=== PATIENT | female | born 1955 | race Two or more races ===

== ENCOUNTER 2018-06-26 09:01 | Day surgery (SDC) | payer OTHER ==
[2018-06-26] MEDS ORDERED: DIAZEPAM 5 MG TAB PO ONE (09:04)
[2018-06-26] MEDS ORDERED: ASPIRIN EC 325 MG TAB PO ONE ×2 (09:04→09:23)
[2018-06-26] MEDS ORDERED: diphenhydrAMINE 25 MG CAP PO ONE ×2 (09:04→09:22)
[2018-06-26] MEDS ORDERED: FAMOTIDINE 20 MG TAB PO ONE (09:04)
[2018-06-26] MEDS ORDERED: NS 1,000 ML IV ONE (09:04)
[2018-06-26] MEDS ORDERED: DIAZEPAM 5 MG TAB ONE (09:23)
[2018-06-26] MEDS ORDERED: FAMOTIDINE 20 MG TAB ONE (09:23)
[2018-06-26 09:45] LABS: PLATELET COUNT 226 10^3/uL (150-400)
[2018-06-26] MEDS ORDERED: fentaNYL 100 MCG/2 ML INJ ONE (09:50)
[2018-06-26] MEDS ORDERED: LIDOCAINE 1% 300 MG/30 ML SDV ONE (09:50)
[2018-06-26] MEDS ORDERED: MIDAZOLAM 2 MG/2 ML VIAL ONE (09:50)
[2018-06-26] MEDS ORDERED: VERAPAMIL 5 MG/2 ML VIAL ONE (09:51)
[2018-06-26] MEDS ORDERED: IOPAMIDOL (ISOVUE-370) 150 ML BTL IV ONE (09:51)
[2018-06-26] MEDS ORDERED: HEPARIN 10,000 UNIT/10 ML MDV (1,000 UNIT/ML) ONE (09:51)
[2018-06-26 09:52] LABS: INR 0.96 (0.83-1.16)
--- NOTE | 2018-06-26 10:00 | CPEKG ---
Test Reason : OPEN Blood Pressure : / mmHG Vent. Rate : 061 BPM Atrial Rate : 060 BPM P-R Int : 224 ms QRS Dur : 091 ms QT Int : 452 ms P-R-T Axes : 052 047 058 degrees QTc Int : 456 ms Sinus rhythm First degree AV block Borderline LVH Confirmed by Yash Guardado ([id number]) on 06/26/2018 9:59:44 AM Referred By: Confirmed By:Yash Guardado
--- NOTE | 2018-06-26 10:20 | PDHPUP ---
History & Physical Update H&P update statement: This history and physical update is based on an assessment of the patient which was completed after admission or registration (within 24 hours), but prior to the surgery/procedure. H&P update: H&P reviewed & patient examined, no change in patient's condition since H&P completed (Luis test right wrist normal at less than 5 sec.)
--- NOTE | 2018-06-26 10:21 | PDPROPOC ---
Sedation Plan of Care Sedation Plan of Care: vital signs stable, mental status noted, patient educated of risks, benefits, alternatives, patient can tolerate sedation ASA Classification: ASA 1 Planned drugs: fentanyl, midazolam Mallampati Score: Class 2 Mallampati Reference Image: Patient passed 3-3-2 rule?: Yes
[2018-06-26] MEDS ORDERED: HYDROCODONE/APAP 5/325 TAB PO PRN (11:12)
[2018-06-26] MEDS ORDERED: ATROPINE SULFATE 1 MG/10 ML SYR IVP PRN (11:12)
[2018-06-26] MEDS ORDERED: ONDANSETRON 4 MG/2 ML VIAL IVP PRN (11:12)
--- NOTE | 2018-06-26 11:18 | PDDXCAT ---
Diagnostic Cath Note - . 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 LAD: Large and angiographically normal. LCX: Large and angiographically normal. RCA: Large and angiographically normal. EDP: 20 mmHg LVEF: 50% Wall motion: Mild global hypokinesis. Complications: None Closure method: TR Band Assessment: 1) Angiographically normal coronary arteries. 2) Borderline LV systolic function.
== END 2018-06-26 13:54 | disposition home or self-care (01) ==
LOC: FCATH 09:01
PROVIDERS: ATTEND Internal Medicine Interventional Cardiology
DX: Z01.810 Encounter for preprocedural cardiovascular examination (principal); Q23.1 Congenital insufficiency of aortic valve; I71.2 Thoracic aortic aneurysm, without rupture; I47.1 Supraventricular tachycardia; I34.0 Nonrheumatic mitral (valve) insufficiency; I07.1 Rheumatic tricuspid insufficiency; I10 Essential (primary) hypertension; N28.1 Cyst of kidney, acquired; I44.0 Atrioventricular block, first degree; Z82.49 Family history of ischemic heart disease and other diseases of the circulatory system
CPT/HCPCS: 71250; 93005; 93458; C1769; J1644; J2250; J3010; Q9967

== ENCOUNTER 2018-07-28 07:15 | Inpatient (IN) | payer OTHER ==
[~2018-07-28 07:15] MED LIST: ADENOSINE 6 MG/2 ML VIAL ONE; ALBUMIN 5% 250 ML BOTTLE IV ONE; AMINOCAPROIC ACID 5 GM/20 ML VIAL ONE; AMIODARONE HCL 150 MG/3 ML VIAL ONE; CALCIUM CHLORIDE 1 GM/10 ML INJ ONE; CARDIOPLEGIC SOLUTION 1,052.8 ML PF ONE; CITRATE DEXTROSE SOLN 500 ML BAG ONE; DOPamine/DEXTROSE 400 MG/250 ML BAG IV ONE; HEPARIN 10,000 UNIT/10 ML MDV (1,000 UNIT/ML) ONE; INSULIN REGULAR HUMAN 100 UNIT in NS 100 ML IV ONE; LIDOCAINE 2% 100 MG/5 ML SYR ONE; MAGNESIUM SULFATE 1 GM/2 ML VIAL ONE; MILRINONE/DEXTROSE/100 ML BAG IV ONE; NA BICARBONATE 50 MEQ/50 ML VIAL ONE; NITROGLYCERIN/D5W 50 MG/250 ML BOTTLE IV ONE; PROTAMINE SULFATE 50 MG/5 ML VIAL IVP ONE; SODIUM BICARBONATE 50 MEQ/50 ML SYR ONE; ceFAZolin 1 GM VIAL ONE; methylPREDNISolone SOD SUCC 1 GM/8 ML VIAL ONE; niCARdipine/NACL/200 ML BAG IV ONE
--- NOTE | 2018-07-28 08:02 | PDGENHP ---
History and Physical - Chief Complaint admit for elective cardiac surgery - History of Present Illness This is a pleasant 63[address] Howard who presents for surgical evaluation of her known BAV with AI, MR, TR, and dilated ascending aorta. She also has a history of paroxymal PAF and HTN. She has had SVT since her 30's and at that time that is when it was diagnosed. She is mostly asymptomatic without cardiac symptoms except for short bursts of palpitations that are usually resolved with bearing down. Her palpitations are worse at night and less during the day. No chest pain, SOB, fatigue. No stroke DM or blood dz. She has a family history of CAD but not any valve or aortic dz. Her last dental exam was 8 months ago. She does hav a history of a dental infection/root canal that has resolved. LHC negative for CAD. CTA chest with 4.4 cm TAA. She denies any change in her health since being seen 2 weeks ago in clinic. History Information - Allergies/Home Medication List Allergies/Adverse Reactions: No Known Allergies Allergy (Verified 07/24/18 11:55) Home Medications: Atenolol [Tenormin 50 mg (*)] 50 mg PO DAILY 06/19/18 [Last Taken Unknown] Diltiazem HCl [Diltiazem 24Hr ER] 180 mg PO DAILY 06/19/18 [Last Taken Unknown] Lisinopril/Hctz 20/12.5MG [Zestoretic/Prinzide 20/12.5MG (*)] 1 ea PO BID [Last Taken Unknown] Multivitamins [Multivitamin (*)] 1 each PO DAILY 07/14/18 [Last Taken Unknown] [place]-3 Fatty Acids [Fish Oil 1000 mg (*)] 1,000 mg PO DAILY 07/14/18 [Last Taken Unknown] I have personally reviewed and updated: family history, medical history, social history, surgical history - Past Medical History no pertinent PMH - Surgical History Reports: no pertinent surgical hx Additional surgical history: No cardiac/pulmonary surgery. - Social History Smoking Status: Never smoked Review of Systems Review of Systems: ROS: 2-9 pt reviewed & negative except for what was stated in HPI & below Physical Exam Physical Exam: Constitutional: no apparent distress, appears nourished Eyes: icteric sclera Ears, Nose, Mouth, Throat: moist mucous membranes, hearing normal, ears appear normal, no oral mucosal ulcers Cardiovascular: regular rate and rhythym, diastolic murmur Respiratory: no respiratory distress, no rales or rhonchi Gastrointestinal: soft, non-tender abdomen Skin: warm, normal color Neurologic: AAOx3 Psychiatric: interacting appropriately, anxious Lab Data & Imaging Review Patient ABO/Rh O POSITIVE 07/26/18 11:34 Antibody Screen NEGATIVE 07/26/18 11:34 WBC 9.3 H/H 14.4/41.4 Plt 226 142 109 16 Glu 120 3.9 22 0.7 Imaging Review: [facility] - no CAD Echo EF 62% Moderate MR, BAV with severe AR. Moderate TR. Dilated ascending aorta Interpretation: ascending aorta aneurysm 4.4 cm & incidental right hepatic cyst 2 x 2.7 cm EKG additional interpertation: NSR with 1st degree AVB; BPM 61: QTc 456 Assessment & Plan Assessment: Bicuspid aortic valve with severe insufficiency Ascending aortic aneurysm @ 4.4 cm Tricuspid valve regurgitation, moderate Mitral imelda regurgitation, moderate Paroxysmal supraventricular tachycardia HTN EF 62% Plan: AVR(tissue), ascending aorta resection & grafting, TVR/R(tissue), MVR/R(tissue) , ZACK with Dr. Head
[2018-07-28] MEDS ORDERED: LIDOCAINE 1% 2 ML INJ ONE (08:31)
[2018-07-28] MEDS ORDERED: CITRATE DEXTROSE SOLN 500 ML BAG MISC ONE (08:46)
[2018-07-28] MEDS ORDERED: AMINOCAPROIC ACID 5 GM/20 ML VIAL IV ONE (08:46)
[2018-07-28] MEDS ORDERED: MUPIROCIN 2% 22 GM OINT NS ONE (08:46)
[2018-07-28] MEDS ORDERED: LIDOCAINE 1% 2 ML INJ ID PRN (08:46)
[2018-07-28] MEDS ORDERED: ceFAZolin 2 GM/DEXTROSE 100 ML IV ONE (08:46)
[2018-07-28] MEDS ORDERED: LR 1,000 ML IV ONE (08:47)
[2018-07-28] MEDS ORDERED: DOBUTamine/DEXTROSE 250 ML IV ONE (09:00)
[2018-07-28] MEDS ORDERED: MILRINONE/DEXTROSE 100 ML IV ONE (09:00)
[2018-07-28] MEDS ORDERED: MIDAZOLAM 2 MG/2 ML VIAL IVP ONE (09:33)
--- NOTE | 2018-07-28 09:33 | PDANEPAE ---
ANE History of Present Illness here for AVR/mvr/tvr/asc aortic ANE Past Medical History - Cardiovascular History Hx Hypertension: Yes Hx Arrhythmias: Yes Hx Chest Pain: No Hx Coronary Artery / Peripheral Vascular Disease: No Hx CHF / Valvular Disease: Yes Hx Palpitations: No Cardiovascular History Comment: htn. hx of svt. murmur. mitral regurg. tricuspid regurg. AAA. bicuspid aortic valve. followed by [facility] - Pulmonary History Hx COPD: No Hx Asthma/Reactive Airway Disease: No Hx Recent Upper Respiratory Infection: No Hx Oxygen in Use at Home: No Hx Sleep Apnea: No Sleep Apnea Screening Result - Last Documented: Positive Pulmonary History Comment: shelley triggers - Neurologic History Hx Cerebrovascular Accident: No Hx Seizures: No Hx Dementia: No - Endocrine History Hx Diabetes: No - Renal History Hx Renal Disorders: No - Liver History Hx Hepatic Disorders: No - Neurological & Psychiatric Hx Hx Neurological and Psychiatric Disorders: No - Cancer History Hx Cancer: No - Congenital Disorder History Hx Congenital Disorders: No - GI History Hx Gastrointestinal Disorders: No - Other Health History Other Health History: wears glasses - Chronic Pain History Chronic Pain: No - Surgical History Prior Surgeries: left heart cath with Lee 06.26.18. benign cyst removed from breast at 19 yo. hysterectomy 1999. appy - emergent 2014. tonsillectomy as teenager ANE Review of Systems Review of systems is: negative Review of Systems: - Exercise capacity Exercise capacity: >=4 METS METS (RN): 3 METS ANE Patient History - Allergies Allergies/Adverse Reactions: No Known Allergies Allergy (Verified 07/24/18 11:55) - Home Medications Home medications: home medication list seen and reviewed Home Medications: Atenolol [Tenormin 50 mg (*)] 50 mg PO DAILY 06/19/18 [Last Taken 07/27/18] Diltiazem HCl [Diltiazem 24Hr ER] 180 mg PO DAILY 06/19/18 [Last Taken 07/27/18] Lisinopril/Hctz 20/12.5MG [Zestoretic/Prinzide 20/12.5MG (*)] 1 ea PO BID [Last Taken 07/27/18] Multivitamins [Multivitamin (*)] 1 each PO DAILY 07/14/18 [Last Taken 07/24/18] [place]-3 Fatty Acids [Fish Oil 1000 mg (*)] 1,000 mg PO DAILY 07/14/18 [Last Taken 07/24/18] - NPO status NPO Status: no food or drink >8 hours NPO Since - Liquids (Date): 07/27/18 NPO Since - Liquids (Time): 23:33 NPO Since - Solids (Date): 07/27/18 NPO Since - Solids (Time): 22:00 - Smoking Hx Smoking Status: Never smoked - Family Anes Hx Family Hx Anesthesia Complications: none ANE Labs/Vital Signs - Vital Signs Vital Signs: reviewed preoperatively; see RN documention for details Blood Pressure: 165/73 Heart Rate: 66 Respiratory Rate: 18 O2 Sat (%): 95 Height: 165.1 cm Weight: 104.5 kg ANE Physical Exam - Airway Neck exam: FROM Mallampati Score: Class 1 - Pulmonary Pulmonary: no respiratory distress - Cardiovascular Cardiovascular: regular rate and rhythym - ASA Status ASA Status: III ANE Anesthesia Plan Anesthesia Plan: general endotracheal anesthesia Lines/Monitors: arterial line, central line, RHONDA
[2018-07-28] MEDS ORDERED: fentaNYL 250 MCG/5 ML INJ ONE ×2 (09:43→10:58)
[2018-07-28] MEDS ORDERED: PROPOFOL/EMULSION 500 MG/50 ML BOTTLE IV ONE (09:48)
[2018-07-28] MEDS ORDERED: MANNITOL 25% 12.5 GM/50 ML VIAL IVP ONE (10:12)
[2018-07-28] MEDS ORDERED: PHENYLEPHRINE HCL 50 MG in NS 250 ML IV ONE (10:12)
[2018-07-28] MEDS ORDERED: NOREPINEPHRINE BITARTRATE 16 MG in NS 250 ML IV ONE (10:12)
[2018-07-28] MEDS ORDERED: PHENYLEPHRINE HCL 100 MCG/ML SYR ONE (11:01)
[2018-07-28] MEDS ORDERED: ePHEDrine SULFATE 25 MG/5 ML SYR ONE (11:01)
[2018-07-28] MEDS ORDERED: HYDROmorphONE/DILAUDID 2 MG/ML INJ ONE (13:21)
[2018-07-28] MEDS ORDERED: DEXMEDETOMIDINE HCL 400 MCG in NS 100 ML IV SCH (13:30)
[2018-07-28] MEDS ORDERED: SUGAMMADEX SODIUM 200 MG/2 ML VIAL IVP ONE (14:26)
--- NOTE | 2018-07-28 14:32 | POSTOPPROG ---
Post Op Note Date of Operation: 07/28/18 Surgeon: Myke Head Assistant: Dayday Griffiths PAC Anesthesiologist: Zach Byrnes MD Anesthesia: GET(General Endotracheal) Pre-op Diagnosis: BAV/AI, MR, TR, ascending aorta aneurysm Post-op Diagnosis: same Procedure: AVR, MVRepair, TVRepair, primary repair of ascending aorta Inf/Abcess present in the surg proc area at time of surgery?: No Depth: Organ Space EBL: 100-500 Drains: Other (2 mediastinal chest tubes y'd; A & V wires) Specimen(s): AV, ascending aorta
[2018-07-28] MEDS ORDERED: CEPACOL LOZENGE PO PRN (14:37)
[2018-07-28] MEDS ORDERED: BISACODYL 10 MG SUPP PR PRN (14:37)
[2018-07-28] MEDS ORDERED: ACETAMINOPHEN 650 MG SUPP PR PRN (14:37)
[2018-07-28] MEDS ORDERED: POLYETHYLENE GLYCOL 3350 17 GM PKT PO PRN (14:37)
[2018-07-28] MEDS ORDERED: PANTOPRAZOLE SODIUM 40 MG VIAL IVP ONE (14:37)
[2018-07-28] MEDS ORDERED: MAGNESIUM HYDROXIDE 30 ML UDCUP PO PRN (14:37)
[2018-07-28] MEDS ORDERED: LACTULOSE 20 GM/30 ML UDCUP PO PRN (14:37)
[2018-07-28] MEDS ORDERED: SODIUM CL NASAL 45 ML BTL EACHNARE PRN (14:37)
[2018-07-28] MEDS ORDERED: MEPERIDINE 25 MG/0.5 ML AMP IVP PRN (14:37)
[2018-07-28] MEDS ORDERED: D50W 25 GM/50 ML SYR IVP PRN (14:37)
[2018-07-28] MEDS ORDERED: ACETAMINOPHEN 325 MG TAB PO PRN (14:37)
[2018-07-28] MEDS ORDERED: ONDANSETRON DISINTEGRATING 4 MG TAB PO PRN (14:37)
[2018-07-28] MEDS ORDERED: NS 1,000 ML IV SCH (14:45)
[2018-07-28] MEDS ORDERED: niCARdipine/NACL 200 ML IV SCH (15:00)
[2018-07-28] MEDS ORDERED: INSULIN REGULAR HUMAN 100 UNIT in NS 100 ML IV SCH (15:00)
--- NOTE | 2018-07-28 15:21 | POSTANESTH ---
Post Anesthetic Evaluation Cardiovascular Status: Normal, Stable Respiratory Status: Requires Airway Assist Level of Consciousness/Mental Status: Moderately Sleepy Pain Control: Adequate, Prn Tx Ordered Nausea/Vomiting Control: Adequate, Prn Tx Ordered Complications Possibly Related to Anesthesia: None Noted
[2018-07-28] MEDS: POTASSIUM Cl (KCl) 50 ML IV PRN ×3 (15:44→19:39)
--- NOTE | 2018-07-28 16:11 | PDMN ---
Medical Necessity Medical necessity: [facility] [place]: S290 cardiac valve replacement/ repair-5 days: OP: AVR, MVRepair, TVRepair, primary repair of ascending aorta --AUTH# [id number] APPROVED FOR CPT 64632, 31760, [id number], [id number] DONE INPT LOS 5 DAYS
--- NOTE | 2018-07-28 16:19 | GCON ---
CRITICAL CARE CONSULTATION DATE OF CONSULTATION: 07/28/2018 HISTORY OF PRESENT ILLNESS: This patient is a 63-year-old female with a known bicuspid aortic valve, as well as progressive aortic regurgitation and stenosis, who has been followed by Dr. Howard who subsequently made a referral for valve replacement, which was performed today by Dr. Head. She und erwent an aortic valve replacement, mitral valve repair, tricuspid valve annuloplasty, left atrial ap pendage ligation, and ascending aorta aneurysm repair. According to the physician's animal care assistant, the p rocedure itself was uncomplicated. Pump time was minimal and there were no hemodynamic compromises. She arrived in the intensive care unit, intubated with no pressors. Chest tubes were in place and s he appeared to be both hemodynamically stable, as well as from a respiratory perspective with an FiO2 of 70% and a saturation of 100. She has no pre-existing coronary artery disease and no previous bela g disease, although some intake questionnaire suggested she has snoring, but no clear indication of o bstructive sleep apnea. REVIEW OF SYSTEMS: Otherwise negative. PAST MEDICAL HISTORY: Includes 1. Bicuspid aortic valve. 2. Aortic stenosis. 3. Aortic regurgitation. 4. Thoracic aortic aneurysm measuring 4.4 cm. 5. Hypertension. 6. Paroxysmal SVT. 7. Mitral regurgitation. PAST SURGICAL HISTORY: Includes 1. Lumpectomy. 2. Hysterectomy. 3. Tonsillectomy. 4. Appendectomy. CURRENT MEDICATIONS: Include Tylenol, Egan, aspirin, Ancef, Precedex, fentanyl, insulin, Toradol, D emerol p.r.n., Reglan, morphine, nicardipine p.r.n., Zofran, Protonix, Senokot, normal saline. EXAM: VITAL SIGNS: On arrival, she was normotensive, heart rate of 88. Oxygen saturation 100% on S IMV and 70% FiO2, with 5 of PEEP. GENERAL: She was still sedated but in no distress and was obese. HEENT: Pupils were equally round and reactive to light. Endotracheal tube was in place, appeared t o be in good position. NECK: Supple, without adenopathy. No subcutaneous air or jugular vein diste ntion. LUNGS: Breath sounds appear to be clear to auscultation bilaterally without wheezes, rubs, o r rales. HEART: Regular rate and rhythm was not pacer dependent. CHEST: Incision looked clean and dry without evidence of bleeding. Chest tube sites looked normal. ABDOMEN: Soft, nontender, nondi stended with hypoactive bowel tones. EXTREMITIES: No clubbing, cyanosis, or edema. NEUROLOGIC: Gr ossly nonfocal. OBJECTIVE DATA: Includes a hematocrit of 37 drawn at 1512 today. Previous basic metabolic panel was normal. Blood gas shows a pH 7.33, pCO2 43, PO2 103, bicarb 23, sat 98%. ASSESSMENT AND PLAN: 1. Acute respiratory failure with hypoxemia, status post cardiac surgery. She appears to be doing q uite well from this perspective. We will advance her as tolerated and I expect she will wean today w ithout difficulty. Will have to watch for obstructive sleep apnea, given her history of snoring and body habitus, and once she is able to give us a history, we can clarify that further. 2. Status post cardiac surgery as described above. This appears to be quite stable at this time wit hout obvious bleeding and hemodynamic stability. Further management of course, would be via Dr. Yary hannon. 3. Hypertension. We are holding her medications at this time, until her blood pressure stabilizes. A total of 35 minutes critical care time was required for this patient. /[id number]/MODL
[2018-07-28] MEDS: ALBUMIN 5% 250 ML IV PRN ×2 (16:20→17:26)
[2018-07-28] MEDS: KETOROLAC 15 MG/1 ML SDV IVP PRN (18:28)
[2018-07-28] MEDS: ONDANSETRON 4 MG/2 ML VIAL IVP PRN (18:54)
[2018-07-28] MEDS: fentaNYL 100 MCG/2 ML INJ IVP PRN (19:38)
[2018-07-28] MEDS: METOCLOPRAMIDE 10 MG/2 ML VIAL IVP PRN (21:27)
[2018-07-28] MEDS: ceFAZolin 2 GM/DEXTROSE 100 ML IV SCH (21:28)
[2018-07-28] MEDS: MUPIROCIN 2% 22 GM OINT NS SCH (23:01)
[2018-07-29] MEDS: KETOROLAC 15 MG/1 ML SDV IVP PRN ×4 (00:08→20:07)
[2018-07-29] MEDS: fentaNYL 100 MCG/2 ML INJ IVP PRN (02:13)
[2018-07-29] MEDS: HYDROCODONE/APAP 5/325 TAB PO PRN ×6 (04:07→22:01)
[2018-07-29] MEDS: METOCLOPRAMIDE 10 MG/2 ML VIAL IVP PRN (04:08)
[2018-07-29] MEDS: ONDANSETRON 4 MG/2 ML VIAL IVP PRN (04:08)
[2018-07-29] MEDS: ceFAZolin 2 GM/DEXTROSE 100 ML IV SCH ×3 (05:09→22:01)
[2018-07-29 05:28] LABS: PLATELET COUNT 99 10^3/uL (150-400)
--- NOTE | 2018-07-29 07:18 | SOAPPROG ---
JONAS Progress Note Assessment/Plan: POD #1 s/p AVR size 23 Inspiris, resection and primary repair of ascending aortic aneurysm, MVRepair size 28 physio annuloplasty ring and anterior leaflet cleft repair, TVRepair size 28 Sommer classic annuloplasty ring, external exclusion of ZACK BAV c severe AI and TAA at 4.5 cm -Pre-op EF 62% with no CAD/RWMA on LHC; mildly dilated LV with DD; asymptomatic -Interposition graft deferred as ascending aorta was amenable to primary repair -Plan for coumadin x 8 weeks when appropriate, daily INR -Continue ASA Moderate MR s/p MVRepair -Anterior cleft seen in the OR and repaired primarily Moderate TR s/p TVRepair Paroxysmal SVT -Has infrequent episodes since 30s controlled with diltiazem for maintenance. Restart when appropriate. Acute blood loss anemia with thrombocytopenia -No transfusions required, monitor with daily labs -Hct dropped from 36(arrival ICU) to 28.7. CT o/p 380cc/12hr Acute pulmonary insufficiency -Extubated POD#0 w/o difficulty -No history of pulmonary disease HTN -Takes home ACEI/HCTZ, restart when appropriate Atrial fibrillation ppx -Starting home atenolol -No episodes or other ectopy Plan: Dc swan, arterial line, mobley Wrap & cap AV wires CBC, BMP, daily INRs CXR 1/ Chest tubes to water seal Start atenolol for pSVT/afib ppx at reduced dose (25 mg PO daily) Anticipate starting coumadin tomorrow Recheck H/H at 1400 today Possible transfer to PCU later today. Will d/w Dr. Head. Subjective: Cardene required briefly overnight. MAPS 67-91. Mild pain. Objective: Vital Signs Temp Pulse Resp BP Pulse Ox 36.9 C 73 10 L 102/56 L 97 07/29/18 06:00 07/29/18 07:00 07/29/18 07:00 07/29/18 07:00 07/29/18 07:00 Laboratory Results 07/29/18 05:10 07/29/18 05:10 07/28/18 07/29/18 07/30/18 05:59 05:59 05:59 Intake Total 2165 Output Total 1315 Balance 850 General: NAD, OOB HEENT: CVL IJ, MMM Respiratory: nasal cannula oxygen at 1 L, no wheezes, crackles Cardiac: NSR, no m/r/g, trace edema GI: soft, nt, nd : mobley Incisions: sternum w/ occlusive dressing Chest tubes: 380cc red/12 hr DVT prophylaxis: SCDs Arterial Line: out today [place]: out today [place]: out today CVC: yes, need for ongoing management, labs Chest Tubes: y - both mediastinal Pacing Wires: a/v - wrap and cap ICD10 Worksheet Patient Problems: Problems Problem Status Onset Acute blood loss anemia Acute Paroxysmal supraventricular tachycardia Acute S/P AVR (aortic valve replacement) Acute S/P TVR (tricuspid valve repair) Acute S/P ascending aortic aneurysm repair Acute S/P mitral valve repair Acute
[2018-07-29] MEDS: POTASSIUM Cl (KCl) 50 ML IV PRN (08:26)
[2018-07-29] MEDS ORDERED: ATENOLOL 25 MG TAB PO SCH (09:00)
[2018-07-29] MEDS: MUPIROCIN 2% 22 GM OINT NS SCH ×2 (09:09→20:08)
--- NOTE | 2018-07-29 11:00 | CPEKG ---
Test Reason : OPEN Blood Pressure : / mmHG Vent. Rate : 085 BPM Atrial Rate : 085 BPM P-R Int : 136 ms QRS Dur : 086 ms QT Int : 436 ms P-R-T Axes : 077 057 050 degrees QTc Int : 519 ms Sinus rhythm Prolonged QT interval Confirmed by Sundeep Delgado ([id number]) on 07/29/2018 11:00:40 AM Referred By: Confirmed By:Sundeep Delgado
--- NOTE | 2018-07-29 11:41 | ASMTCASEMG ---
Living Arrangements What is your living Answers: With Spouse arrangement? Who do you live with? Type Of Residence What kind of residence do Answers: House you live in? Discharge Plan Comments Coordination Status Comments Notes: Patient is a 63yo female who presents for surgical evaluation of her known BAV with AI, MR, TR and dilated ascending aorta. Patient will have surgery with Dr. Head - AVR, ascending aorta resection and grafting, TVR/R, MVR and ZACK. 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 D/C plan TBD. CM will follow. Date Signed: 07/29/2018 11:40 AM Electronically Signed By:Marija Pina LCSW
--- NOTE | 2018-07-29 13:49 | PDINTPN ---
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 Her procedure was uneventful and she extubated the same day in the ICU following standard protocol. Once awake, she complained of paresthesia involving most of her RUE without weakness. * Acute respiratory failure with hypoxemia- extubated easily and remains on minimal o2. Comntinue with pulmonary toilet. * Paresthesia- probably related tpo positioning on the OR, but rapidly improving without intervention, now involving only the distal ulnar disdtribution. Shine Worker strength is normal. Continue observation for resolution. * LALO- she has snoring, frequent wakening, obesity and daytime somnolence. Once she has recovered from her surgery she will need anoutpatient sleep study. I gave her my card to schedule. * WBC- slight bump today- obsevere * OK for PCU from my perspective. Subjective: feels well except complains of RUE paresthesia Objective: Vital Signs Temp Pulse Resp BP Pulse Ox 37.1 C 79 20 119/61 90 L 07/29/18 12:00 07/29/18 12:00 07/29/18 12:00 07/29/18 12:00 07/29/18 12:00 Laboratory Results 07/29/18 05:10 07/29/18 05:10 07/28/18 07/29/18 07/30/18 05:59 05:59 05:59 Intake Total 2165 Output Total 1315 110 Balance 850 -110 Physical Exam - Physical Exam General Appearance: alert, no apparent distress, obese EENT: PERRL/EOMI, No scleral icterus (R), No scleral icterus (L) Neck: non-tender, supple Respiratory: lungs clear, normal breath sounds, No respiratory distress, No accessory muscle use Cardiac/Chest: regular rate, rhythm, No edema, No JVD Abdomen: non-tender, soft, No distended Skin: normal color, warm/dry, No cyanosis Lymphatic: no adenopathy Extremities: No pedal edema Neuro/Psych: alert, normal mood/affect, oriented x 3, other (paresthesia in RUE ulnar nerve distribution) ICD10 Worksheet Patient Problems: Problems Problem Status Onset Acute blood loss anemia Acute Paroxysmal supraventricular tachycardia Acute S/P AVR (aortic valve replacement) Acute S/P TVR (tricuspid valve repair) Acute S/P ascending aortic aneurysm repair Acute S/P mitral valve repair Acute
[2018-07-29] MEDS ORDERED: ASPIRIN 81 MG CHEWABLE TAB TUBE PRN (14:37)
--- NOTE | 2018-07-29 15:47 | GOP ---
DATE OF OPERATION: 07/28/2018 SURGEON: Myke Head MD DISTRIBUTION ANALYST: Dayday Griffiths P.A.-c. PREOPERATIVE DIAGNOSIS: 1. Severe aortic insufficiency. 2. Moderate mitral regurgitation. 3. Moderately severe tricuspid regurgitation. 4. Ascending aortic aneurysm. POSTOPERATIVE DIAGNOSIS: 1. Severe aortic insufficiency. 2. Moderate mitral regurgitation. 3. Moderately severe tricuspid regurgitation. 4. Ascending aortic aneurysm. PROCEDURE PERFORMED: 1. Aortic valve replacement using a 23 mm Malcolm Inspiris bioprosthetic valve. 2. Resection and primary repair of ascending aortic aneurysm. 3. Mitral valve repair with cleft closure in the A3 segment of the anterior leaflet and ring annulop lasty using a 28 mm Physio ring. 4. Tricuspid valve repair using a 28 mm annuloplasty ring. 5. Left atrial appendage occlusion. FINDINGS: INDICATIONS: The patient is a 63-year-old woman who is with a primary lesion of aortic insufficiency and slightly dilated left ventricle, who was found to have multivalvular heart disease and an ascend ing aortic aneurysm. She was recommended to undergo surgical repair. DESCRIPTION OF PROCEDURE: Patient was taken to the operating room, placed on the operating table in the supine position. After the induction of general anesthesia and single-lumen endotracheal tube in tubation, patient was prepped and draped sterilely. A standard median sternotomy was performed. The patient was fully heparinized. She was cannulated with a Sarns 8.0 soft flow aortic cannula as well as 24-Spanish and 28-Spanish SVC and IVC cannulas. After full heparinization, cardiopulmonary bypass was instituted. The left atrial appendage was then snared externally and occluded. Next, the cross-clamp was applied and the heart was arrested with 1 L of [place] solution given in a n antegrade direction. The aorta was then transected and the aneurysmal part was resected and sent f or histology. We inspected the valve. It was trileaflet. It was excised and then sized to a 23 mm Inspiris valve. Once this had been done, we turned our attention to the left atrium. The left atriu m was opened, and the mitral valve was inspected. The sutures were then placed around the mitral silva sylvie. The valve was tested under pressure and there was a central leak as noted on the echo and also a cleft between the A2 and A3 segments. This cleft was closed with a single 4-0 Prolene suture. The valve was sized to a 28 mm ring. This ring was then placed through the annular sutures and seated w ithout difficulty. The left atrium was then closed. Attention was redirected at the aorta. The remainder of the aortic sutures were placed. The 23 mm a ortic valve was also seated without difficulty, and then the aneurysm itself was repaired with primar y anastomosis of the proximal and distal aorta with woven Dacron reinforcement. Attention was next d irected at the tricuspid valve. The 28 mm ring was selected. Sutures were placed around the anulus. The ring was seated without difficulty, and the right atrium was then closed. It was noted that th e [place] was through the tricuspid valve and it was not moved during the procedure. It was free from a ny entrapment. Once the right atrium was then closed, the cross-clamp was removed. Atrial and ventr icular pacing wires were placed. Two mediastinal chest drains were placed. The patient was separate d from cardiopulmonary bypass without difficulty. The post pump transesophageal echo showed no resid ual air and a normally functioning aortic, mitral, and tricuspid valves. The protamine was administe red. The patient was decannulated. All the cannulation sites were doubly secured with the prolene s uture and after hemostasis had been achieved, the heart was then covered with pericardium and fat. T he chest was closed with #6 stainless steel wires. Subcutaneous tissue and skin were closed with run katty Vicryl suture. The patient tolerated the procedure well. /[id number]/MODL
[2018-07-29] MEDS: PANTOPRAZOLE SODIUM 40 MG TAB PO SCH (16:30)
[2018-07-29] MEDS: ASPIRIN 81 MG CHEWABLE TAB PO SCH (16:30)
[2018-07-29] MEDS: SENNOSIDES/DOCUSATE SODIUM TAB PO SCH (20:08)
[2018-07-30] MEDS: HYDROCODONE/APAP 5/325 TAB PO PRN ×4 (02:15→21:07)
[2018-07-30 04:31] LABS: PLATELET COUNT 101 10^3/uL (150-400)
[2018-07-30] MEDS: ceFAZolin 2 GM/DEXTROSE 100 ML IV SCH (05:59)
[2018-07-30] MEDS: KETOROLAC 15 MG/1 ML SDV IVP PRN ×2 (07:11→14:20)
--- NOTE | 2018-07-30 08:05 | SOAPPROG ---
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 Stable early postop course. Antithrombotic prophylaxis w Coumadin x 8 weeks. Adjunctive baby ASA until INR stable in therapeutic range. AF prophylaxis w BB as tolerated. Moderate MR - Amenable to complex repair. Antithrombotic prophylaxis as per AVR. 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 Antithrombotic prophylaxis as per AVR. 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 No inotropic support. No sig volume overload. Staggered intro of HF regimen as tolerated. Postop PAF - hx of PSVT controlled on BB and CCB. Postop rhythm sinus with paroxysms of asx AF as of last night. Rates 60s-80s on Atenolol. [place] amiodarone for RVR. [id number] score of 3. Antithrombotic prophylaxis as per AVR. Acute expected blood loss anemia with thrombocytopenia - Stable. No transfusions required. Platelet rebound noted. VTE prophylaxis with SCDs, coumadin and SQ heparin until INR > 1.9. HTN - Controlled on combination therapy. Postop management preferentially w BB. Resumption of CCB and ACEI/HCTZ when appropriate. Plan: Ant chest tube removed. Bianca drain converted to bulb suction. Switch atenolol to metoprolol tartrate 12.5 mg BID for ease of titration. Begin daily diuresis. Coumadin 2.5 mg today. Tx to PCU. 07/30/18 08:04 Subjective: Poor sleep in bed d/t back ache, better once transferred to chair. Tolerating small quantities of solids. Looking forward to PT. Objective: Vital Signs Temp Pulse Resp BP Pulse Ox 37.1 C 63 14 114/46 L 94 07/29/18 16:00 07/30/18 04:00 07/30/18 04:00 07/30/18 04:00 07/30/18 04:00 Laboratory Results 07/30/18 04:15 07/30/18 04:15 07/29/18 07/30/18 07/31/18 05:59 05:59 05:59 Intake Total 2165 1394 Output Total 1315 970 Balance 850 424 PAF 70s as of late last noc. SBPs > 110. Borderline suppl O2 req. Slightly pos fluid balance. +4 kg overall. CTOP approaching removal criteria. CXR -> bibasilar atelectasis, L>R Labs as expected. Plt on the rise. Physical Exam - Physical Exam General Appearance: alert, no apparent distress Respiratory: lungs clear (grossly), other (CT and bianca y-d to pleurovac, thin serosang drainage. CT removed without incident. Bianca converted to bulb suction. Laxity to skin stitch shortened to reduce intermittent externalization of flutes with secondary air leak.) Cardiac/Chest: irregularly irregular, other (Sternotomy CDI. A&V wires intact.) Abdomen: non-tender, soft Skin: warm/dry Extremities: swelling (trace) ICD10 Worksheet Patient Problems: Problems Problem Status Onset Acute blood loss anemia Acute Paroxysmal supraventricular tachycardia Acute S/P AVR (aortic valve replacement) Acute S/P TVR (tricuspid valve repair) Acute S/P ascending aortic aneurysm repair Acute S/P mitral valve repair Acute
[2018-07-30] MEDS ORDERED: POTASSIUM CL 10 MEQ TAB PO ONE (09:00)
[2018-07-30] MEDS ORDERED: FUROSEMIDE 20 MG/2 ML VIAL IVP ONE (09:00)
[2018-07-30] MEDS ORDERED: LIDOCAINE 1% 300 MG/30 ML SDV ONE (09:26)
[2018-07-30] MEDS: METOPROLOL TARTRATE 25 MG TAB PO SCH ×2 (09:42→21:06)
[2018-07-30] MEDS: SENNOSIDES/DOCUSATE SODIUM TAB PO SCH (09:44)
[2018-07-30] MEDS: PANTOPRAZOLE SODIUM 40 MG TAB PO SCH (09:44)
[2018-07-30] MEDS: ASPIRIN 81 MG CHEWABLE TAB PO SCH (09:45)
[2018-07-30] MEDS: MUPIROCIN 2% 22 GM OINT NS SCH (09:45)
[2018-07-30] MEDS ORDERED: WARFARIN SODIUM 2.5 MG TAB PO ONE (16:00)
[2018-07-30] MEDS: traMADol 50 MG TAB PO PRN (18:00)
[2018-07-30] MEDS ORDERED: SENNOSIDES/DOCUSATE SODIUM TAB PO PRN (21:00)
[2018-07-31] MEDS: traMADol 50 MG TAB PO PRN ×3 (00:12→15:57)
[2018-07-31] MEDS: HYDROCODONE/APAP 5/325 TAB PO PRN ×4 (01:51→20:00)
[2018-07-31 06:05] LABS: INR 1.45 (0.83-1.16); PROTIME(PATIENT) 17.8 SEC (12.0-15.0)
[2018-07-31] MEDS: METOPROLOL TARTRATE 25 MG TAB PO SCH ×2 (08:38→19:59)
[2018-07-31] MEDS: ASPIRIN 81 MG CHEWABLE TAB PO SCH (08:38)
[2018-07-31] MEDS: PANTOPRAZOLE SODIUM 40 MG TAB PO SCH (08:39)
--- NOTE | 2018-07-31 09:03 | SOAPPROG ---
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 Stable early postop course. Antithrombotic prophylaxis w Coumadin x 8 weeks. Adjunctive baby ASA until INR stable in therapeutic range. AF prophylaxis w BB as tolerated. Moderate MR - Amenable to complex repair. Antithrombotic prophylaxis as per AVR. 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 Antithrombotic prophylaxis as per AVR. 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 No inotropic support. Moderate volume overload well tolerated. Diuresis in progress. Postop PAF/Fl - hx of PSVT controlled on BB and CCB. Postop rhythm sinus with paroxysms of asx AF/Fl as of POD#1. Rates 60s-80s on BB. [place] amiodarone for RVR. [id number] score of 3. Antithrombotic prophylaxis as per AVR. Acute expected blood loss anemia with thrombocytopenia - Stable. No transfusions required. Platelet rebound noted. VTE prophylaxis with SCDs, coumadin and SQ heparin until INR > 1.9. HTN - Controlled on combination therapy. Postop management preferentially w BB. Resumption of CCB and ACEI/HCTZ when appropriate. Plan: Rl drain removed. Cont metoprolol tartrate 12.5 mg BID. Intensify daily diuresis. Cont coumadin 2.5 mg today. Inc activity as tolerated. Baseline postop echo tomorrow. Consider removal TCPWs tomorrow. Dispo - Anticipate home without services in 2 days if rhythm stable. 07/31/18 09:01 Subjective: Feels well. Able to sleep in bed for most of the night. Improving mobility and appetite. +BM. Adequate analgesia. No acute concerns. Objective: Vital Signs Temp Pulse Resp BP Pulse Ox 36.5 C 73 14 125/59 H 97 07/31/18 04:00 07/31/18 07:26 07/31/18 07:26 07/31/18 07:26 07/31/18 07:26 Laboratory Results 07/30/18 04:15 07/31/18 05:35 07/30/18 07/31/1819 05:59 05:59 05:59 Intake Total 1394 700 Output Total 970 325 Balance 424 375 PT 17.8 SEC (12.0-15.0) H 07/31/18 05:35 INR 1.45 (0.83-1.16) H 07/31/18 05:35 Remains in SR with PAF/Flutter. VVR mostly 70s. Uptrending SBPs. Off O2. Positive fluid balance. +5 kg overall. Min CTOP. Labs ok. Physical Exam - Physical Exam General Appearance: alert, no apparent distress Respiratory: lungs clear (grossly), other (Rl drain to bulb suction, serosang drainage. Removed without incident.) Cardiac/Chest: regular rate, rhythm, other (Sternotomy CDI. A&V wires intact.) Abdomen: non-tender, soft Skin: warm/dry Extremities: swelling (1+ gen) ICD10 Worksheet Patient Problems: Problems Problem Status Onset Acute blood loss anemia Acute Paroxysmal supraventricular tachycardia Acute S/P AVR (aortic valve replacement) Acute S/P TVR (tricuspid valve repair) Acute S/P ascending aortic aneurysm repair Acute S/P mitral valve repair Acute
[2018-07-31] MEDS: FUROSEMIDE 40 MG/4 ML VIAL IVP SCH ×2 (09:57→15:31)
[2018-07-31] MEDS: POTASSIUM CL 20 MEQ TAB PO SCH ×2 (10:35→20:01)
--- NOTE | 2018-07-31 14:06 | ASMTCMCOM ---
CM Note CM Note Notes: CM reviewed pts chart. Therapies have cleared pt to d/c home without any needs. CM available for changes. Plan: Independent Date Signed: 07/31/2018 02:06 PM Electronically Signed By:ROSALINDA Blackmon
[2018-07-31] MEDS ORDERED: WARFARIN SODIUM 2.5 MG TAB PO ONE (16:00)
[2018-08-01] MEDS: HYDROCODONE/APAP 5/325 TAB PO PRN ×5 (01:02→20:07)
[2018-08-01 07:07] LABS: INR 2.1 (0.83-1.16); PROTIME(PATIENT) 23.6 SEC (12.0-15.0)
--- NOTE | 2018-08-01 07:39 | SOAPPROG ---
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 Antithrombotic prophylaxis w Coumadin x 8 weeks. Adjunctive baby ASA until INR stable in therapeutic range. AF prophylaxis w BB as tolerated. Moderate MR - Amenable to complex repair. Antithrombotic prophylaxis as per AVR. 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 Antithrombotic prophylaxis as per AVR. 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 Postop PAF/Fl - hx of PSVT controlled on BB and CCB. Postop rhythm rate- controlled AF. [place] amiodarone for RVR. [id number] score of 3. Antithrombotic prophylaxis as per AVR. Acute expected blood loss anemia with thrombocytopenia - Stable. No transfusions required. VTE prophylaxis with SCDs as oper Dr. Archie Ko. DVT prophylaxis - SCDs only. Disposition - home Saturday, self-care. Subjective: Feeling more energetic today. Denies SOB. Pain well-controlled. Slept well overnight. Objective: Vital Signs Temp Pulse Resp BP Pulse Ox 36.4 C 84 13 99/64 L 95 08/01/18 07:11 08/01/18 07:11 08/01/18 07:11 08/01/18 07:11 08/01/18 07:11 Laboratory Results 08/01/18 05:40 08/01/18 05:40 07/31/18 08/01/18 08/02/18 05:59 05:59 05:59 Intake Total 700 1000 Output Total 325 2750 125 Balance 375 -1750 -125 PT 23.6 SEC (12.0-15.0) H 08/01/18 06:35 INR 2.10 (0.83-1.16) H 08/01/18 06:35 Physical Exam - Physical Exam General Appearance: WD/WN, alert, no apparent distress, obese EENT: No scleral icterus (R), No scleral icterus (L) Neck: normal inspection Respiratory: No respiratory distress Cardiac/Chest: irregularly irregular Abdomen: non-tender, soft, No distended Skin: normal color, warm/dry Extremities: pedal edema ICD10 Worksheet Patient Problems: Problems Problem Status Onset Acute blood loss anemia Acute Paroxysmal supraventricular tachycardia Acute S/P AVR (aortic valve replacement) Acute S/P TVR (tricuspid valve repair) Acute S/P ascending aortic aneurysm repair Acute S/P mitral valve repair Acute
[2018-08-01] MEDS: ASPIRIN 81 MG CHEWABLE TAB PO SCH (10:02)
[2018-08-01] MEDS: METOPROLOL TARTRATE 25 MG TAB PO SCH ×2 (10:03→20:07)
[2018-08-01] MEDS: PANTOPRAZOLE SODIUM 40 MG TAB PO SCH (10:03)
[2018-08-01] MEDS: FUROSEMIDE 40 MG/4 ML VIAL IVP SCH (10:04)
[2018-08-01] MEDS: POTASSIUM CL 20 MEQ TAB PO SCH (10:04)
[2018-08-01] MEDS: COLCHICINE 0.6 MG CAP/TAB PO SCH ×2 (10:06→20:07)
--- NOTE | 2018-08-01 15:29 | ECHO ---
[email or web address] [address] [address] Main: [phone] Fax: Transthoracic Echocardiogram Name: PORFIRIO CALDERA MR#: [id number] Study Date: 08/01/2018 Study Time: 09:11 AM Date of : 1955 Age: 63 year(s) Height: 165.1 cm (65 in.) Weight: 109.32 kg (241 lb.) BSA: 2.14 m2 Gender: Female Examination: Echo Indication: Baseline postop/s/p AVR#23 CE Inspiris, MVA#28 physio, TVA#28 MC3 Image Quality: Good Contrast: Requested by: Jolynn Purvis BP: 99 mmHg/64 mmHg Heart Rate: Rhythm: Indication: Baseline postop/s/p AVR#23 CE Inspiris, MVA#28 physio, TVA#28 MC3 Procedure Staff Director Records Management: Tova Lu [facility] Reading Physician: Jax Braun MD Requesting Provider: Conclusions: Normal size left ventricle. No LV hypertrophy. Normal global systolic LV function. The ejection fraction is estimated to be 60-65 %. Normal size right ventricle. Normal RV function. The left atrium is normal in size. The right atrium is normal in size. There is no mitral valve regurgitation. Mitral valve repair with annuloplasty ring. MV mean PG is 4mmHG.. The aortic valve is a bioprosthesis. Normal functioning aortic valve prosthesis. There is no tricuspid valve regurgitation. There is a tricuspid valve ring. TV mean PG is 4mmHG, no tricuspid stenosis. . Moderate pericardial effusion. No echocardiographic evidence of hemodynamic compromise. Moderate (1.8 cm) anterior pericardial effusion with some echogenicity. . Measurements: Chambers Valvular Assessment AV/MV Valvular Assessment TV/PV Normal Normal Normal Name Value Range Name Value Range Name Value Range Ao Debra (2D): 3.8 cm (1.4 cm-2.6 AV meanP mmHg ( - ) TV Vmax: 1.38 m/s (0.3 m/s-0.7 cm) MV E Vmax: 1.49 m/s ( - ) m/s) IVSd (2D): 0.8 cm (0.6 cm-1.1 MV A Vmax: 0.38 m/s ( - ) TV Vmean: 0.86 m/s ( - ) cm) MV E/A: 3.92 ( - ) TV PGmax: 8 mmHg ( - ) TV PGmean: 4 mmHg ( - ) Patient: PORFIRIO CALDERA Study Date: 08/01/2018 Page 1 of 2 09:11 AM LVDd (2D): 4.4 cm (3.9 cm-5.3 MV meanP mmHg ( - ) TV VTI: 42.00 cm ( - ) cm) LVDs (2D): 3.2 cm (2.1 cm-4 cm) LVPWd (2D): 0.8 cm ( - ) EF Range: 60-65 % Continued Measurements: Chambers Valvular Assessment AV/MV Name Value Name Value LADs: 3.3 cm MV VTI: 48.30 cm LADs Lon.6 cm LA Area: 21.7 cm2 LA Volume: 66 ml LA Volume Index: 30.8 ml/m2 Findings: Left Ventricle: Normal size left ventricle. No LV hypertrophy. Normal global systolic LV function. The ejection fraction is estimated to be 60-65 %. No regional wall motion abnormality. Normal diastolic LV function. Right Ventricle: Normal size right ventricle. Normal RV function. Left Atrium: The left atrium is normal in size. Right Atrium: The right atrium is normal in size. Mitral Valve: There is no mitral valve regurgitation. Mitral valve repair with annuloplasty ring. MV mean PG is 4mmHG.. Aortic Valve: Aortic valve is not well visualized. There is no aortic valve regurgitation. The aortic valve is a bioprosthesis. Normal functioning aortic valve prosthesis. AV max PG is 21mmHG. AV mean PG is 13mmHG.. Tricuspid Valve: There is no tricuspid valve regurgitation. There is a tricuspid valve ring. TV mean PG is 4mmHG, no tricuspid stenosis. . Pulmonic Valve: Pulmonary valve not well visualized. Aorta: The aorta is normal. IVC: The IVC is not well visualized. Pericardium: Moderate pericardial effusion. No echocardiographic evidence of hemodynamic compromise. Moderate (1.8 cm) anterior pericardial effusion with some echogenicity. . (No Signature Object) Patient: PORFIRIO CALDERA Study Date: 08/01/2018 Page 2 of 2 09:11 AM [id number]
[2018-08-01] MEDS: traMADol 50 MG TAB PO PRN ×2 (16:13→23:39)
[2018-08-02] MEDS: HYDROCODONE/APAP 5/325 TAB PO PRN ×3 (02:57→14:16)
[2018-08-02] MEDS: traMADol 50 MG TAB PO PRN ×2 (06:09→12:04)
[2018-08-02 07:02] LABS: INR 1.77 (0.83-1.16); PROTIME(PATIENT) 20.7 SEC (12.0-15.0)
--- NOTE | 2018-08-02 07:21 | SOAPPROG ---
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 Antithrombotic prophylaxis w Coumadin x 8 weeks. AF prophylaxis w BB as tolerated. Moderate MR - Amenable to complex repair. Antithrombotic prophylaxis as per AVR. 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 Antithrombotic prophylaxis as per AVR. 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 Postop PAF/Fl - hx of PSVT controlled on BB and CCB. Postop rhythm rate- controlled AF. [place] amiodarone for RVR. [id number] score of 3. Antithrombotic prophylaxis as per AVR. Acute expected blood loss anemia with thrombocytopenia - Stable. No transfusions required. VTE prophylaxis with SCDs as per Dr. Archie Ko. Post-op moderate pericardial effusion - as seen on routine post-op TTE. No evidence of HD compromise. Colchicine started for likely inflammatory component. Plan for f/u limited TTE on post-op f/u. DVT prophylaxis - SCDs only. Disposition - home today, self-care. Subjective: Pain well-controlled. Denies SOB. Feels ready to go home. Objective: Vital Signs Temp Pulse Resp BP Pulse Ox 36.5 C 71 16 117/75 95 08/02/18 04:00 08/02/18 04:00 08/02/18 04:00 08/02/18 04:00 08/02/18 04:00 Laboratory Results 08/01/18 05:40 08/01/18 05:40 08/01/18 08/02/18 08/03/18 05:59 05:59 05:59 Intake Total 1000 500 Output Total 2750 125 Balance -1750 375 PT 20.7 SEC (12.0-15.0) H 08/02/18 06:40 INR 1.77 (0.83-1.16) H 08/02/18 06:40 Physical Exam - Physical Exam General Appearance: WD/WN, alert, no apparent distress EENT: No scleral icterus (R), No scleral icterus (L) Neck: normal inspection Respiratory: No respiratory distress Cardiac/Chest: irregularly irregular Abdomen: non-tender, soft, No distended Skin: normal color, warm/dry Extremities: pedal edema Neuro/Psych: no motor/sensory deficits, alert, normal mood/affect, oriented x 3 ICD10 Worksheet Patient Problems: Problems Problem Status Onset Acute blood loss anemia Acute Paroxysmal supraventricular tachycardia Acute S/P AVR (aortic valve replacement) Acute S/P TVR (tricuspid valve repair) Acute S/P ascending aortic aneurysm repair Acute S/P mitral valve repair Acute
[2018-08-02 07:39] VITALS: BP 125/75
[2018-08-02] MEDS ORDERED: POTASSIUM CL 20 MEQ TAB PO SCH (09:00)
[2018-08-02] MEDS ORDERED: FUROSEMIDE 40 MG TAB PO SCH (09:00)
[2018-08-02] MEDS: PANTOPRAZOLE SODIUM 40 MG TAB PO SCH (09:04)
[2018-08-02] MEDS: COLCHICINE 0.6 MG CAP/TAB PO SCH (09:04)
[2018-08-02] MEDS: METOPROLOL TARTRATE 25 MG TAB PO SCH (09:04)
[2018-08-02] MEDS: ASPIRIN 81 MG CHEWABLE TAB PO SCH (09:04)
--- NOTE | 2018-08-02 09:08 | PDDCSUM ---
Discharge Summary Discharge Summary: ADMISSION DATE: 07/28/18 DISCHARGE DATE: 08/02/18 ADMISSION DIAGNOSES 1. 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 Moderate MR 3. Secondary TR DISCHARGE DIAGNOSES 1. 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 Moderate MR 3. Secondary TR 4. Acute post-op blood loss anemia and thrombocytopenia 5. Post-op rate-controlled AF 6. Post-op moderate pericardial effusion PROCEDURES 07/28/18 (Myke Ko): AVR #23 Inspiris bioprosthesis, rsxn & primary repair aneurysmal asc ao, MV repair with #28 Physio ring, TVA with #28 MC3 ring, suture lig ZACK HPI 63F with severe AI, moderate MR, secondary TR and aneurysmal asc ao admitted for elective open-heart surgery. HOSPITAL COURSE BY PROBLEM LIST 1. 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 Antithrombotic prophylaxis w Coumadin x 8 weeks. Continue adjunctive baby ASA. 2. Moderate MR - amenable to complex repair. Antithrombotic prophylaxis as per AVR. 3. Secondary TR - amenable to ring annuloplasty. Antithrombotic prophylaxis as per AVR. 4. Post-op rate-controlled AF - continue beta-saúl. Antithrombotic prophylaxis as per AVR. 5. Acute post-op blood loss anemia and thrombocytopenia - Stable. No transfusions required. 6. Post-op moderate pericardial effusion - as seen on routine post-op TTE. No evidence of HD compromise. Colchicine started for likely inflammatory component. Plan for limited TTE on post-op f/u. CONDITION Good DISPOSITION Home without services PERTINENT DISCHARGE CLINICAL INFORMATION Vitals: 125/75, 78 AF, 93% on RA, +3kg Exam: NAD, Irregularly irregular, No resp distress, ND, soft, NTP, BLE with +1 edema ACTIVITY Pt was instructed on sternal precautions, activity limitations, and which problems to call [facility] with. Please see Discharge Plan in chart for specifics. DISCHARGE MEDICATIONS Continue: MVI/Supplements New: Colchicine 0.6 mg BID, Lasix 40 mg DAILY, [place] 5/325 mg 1-2 tabs PRN severe pain #25, Lopressor 12.5 mg BID, KCL 20 meq DAILY, Tramadol 50 mg Q6H PRN moderate pain #25, Warfarin 2.5 mg DAILY for INR 2-3, ASA 81 mg DAILY, Acetaminophen OTC PRN Stop Diltiazem, Atenolol, Lisinopril/HCTZ PENDING STUDIES/LABS 1. CXR prior to surgical follow-up 2. Limited TTE at surgical follow-up 3. INR as per [facility] FOLLOW-UP 1. Myke Ko, 08/12/18, 11:00 AM 2. [place], as directed
--- NOTE | 2018-08-02 12:16 | ASMTLACE ---
LACE Length of stay for Answers: 4-6 days current admission Acuity / Level of Answers: Yes Care: Did the patient have an inpatient admission? Comorbidities - select Answers: Congestive heart failure all that apply Other Notes: HTN # of Emergency department Answers: 0 visits in the last 6 months Score: 10 Date Signed: 08/02/2018 12:16 PM Electronically Signed By:Jacquelyn Romero RN
--- NOTE | 2018-08-02 12:20 | ASDISCHSUM ---
Discharge Information Plan Status:Home with No Needs Medically Cleared to Leave:08/01/2018 Discharge Date:08/01/2018 CM D/C Disposition:Home, Routine, Self-Care ADT D/C Disposition:Home, Routine, Self-Care Projected Discharge Date:08/01/2018 Transportation at D/C: Discharge Delay Reason: Follow-Up Date:08/01/2018 Discharge Slot: Final Diagnosis: Placement Information Patient Contact Information Contact Name:CHARANJIT Relationship: Address:[address] Work Phone: City:[place] Phone: State/Zip Code:[place] [address] Email: Financial Information Financial Class:HMO and PPO Plans Primary Plan Desc:[facility] Primary Plan Number:[id number] Secondary Plan Desc: Secondary Plan Number: Assessment Information LACE LACE Length of stay for Answers: 4-6 days current admission Acuity / Level of Answers: Yes Care: Did the patient have an inpatient admission? Comorbidities - select Answers: Congestive heart failure all that apply Other Notes: HTN # of Emergency department Answers: 0 visits in the last 6 months Score: 10 Date Signed: 08/02/2018 12:16 PM Electronically Signed By:Jacquelyn Romero RN [facility] Initial CM Assessment Living Arrangements What is your living Answers: With Spouse arrangement? Who do you live with? Type Of Residence What kind of residence do Answers: House you live in? Discharge Plan Comments Coordination Status Comments Notes: Patient is a 63yo female who presents for surgical evaluation of her known BAV with AI, MR, TR and dilated ascending aorta. Patient will have surgery with Dr. Head - AVR, ascending aorta resection and grafting, TVR/R, MVR and ZACK. PT/OT/[facility]/cardiac rehab evals have been ordered. D/C plan TBD. CM will follow. Date Signed: 07/29/2018 11:40 AM Electronically Signed By:Marija Pina LCSW [facility] CM Progress Note CM Note CM Note Notes: CM reviewed pts chart. Therapies have cleared pt to d/c home without any needs. CM available for changes. Plan: Independent Date Signed: 07/31/2018 02:06 PM Electronically Signed By:ROSALINDA Blackmon Case Management Discharge Plan Note Case Management Discharge Discharge Order Complete? Answers: Yes Patient to Obtain Answers: via Family Medications Transportation Arranged Answers: Family/Friends Discharge Comments Notes: 08/02/2018 Case Management Note Discussed with Chivo Barger this morning. No case management d/c needs identified. Case Management d/c poc: independent with follow up as directed. Date Signed: 08/02/2018 12:18 PM Electronically Signed By:Jacquelyn Romero RN Intervention Information
[2018-08-02] MEDS ORDERED: WARFARIN SODIUM 2.5 MG TAB PO SCH (16:00)
--- NOTE | 2018-08-06 12:12 | PQFORM ---
PHYSICIAN QUERY FORM Needs Your Response This query form is being sent to you to assure this patient record is coded properly. Please respond to the question below: IT DATA ARCHITECT QUESTION: Dear Dr. Clifford, Noted in Dr. Wayne 07/28 Consultation and again in the 07/29 Field [facility]uler Progress Note patient was noted to be in "acute respiratory failure w/ Hypoxemia." Noted in 07/29 SOAP Progress Note patient was diagnosed with "Acute Pulmonary insufficiency." After study, should the diagnosis of "Acute Pulmonary Insufficiency" be included in the discharge summary? Yes __x___No Clinically Undetermined Other (please specify) Thank you, RAMON Hart HIM/Coding Dept. [phone] INSTRUCTIONS FOR RESPONSE: Answer question by clicking on the "Edit Document" button. Move cursor to area below the stars. When complete, hit "Save." Click on the "Sign" button, then click "Sign" again. Type in your PIN and hit "Enter." MTDD
== END 2018-08-02 14:22 | disposition home or self-care (01) | DRG 220 ==
LOC: F3N 08:06 → F2N 09:02 → F2W 07-30 11:40
PROVIDERS: ADMIT Thoracic Surgery (Cardiothoracic Vascular Surgery); ATTEND Thoracic Surgery (Cardiothoracic Vascular Surgery)
DX: Q23.1 Congenital insufficiency of aortic valve (principal); D62 Acute posthemorrhagic anemia; I31.3 Pericardial effusion (noninflammatory); I71.2 Thoracic aortic aneurysm, without rupture; D69.59 Other secondary thrombocytopenia; I48.91 Unspecified atrial fibrillation; I10 Essential (primary) hypertension; G47.33 Obstructive sleep apnea (adult) (pediatric)
CPT/HCPCS: 82435-PO; 82565-PO; 82947-PO; 83605-ER; 84132-PO; 84295-PO; 84520-PO; 85014-ER; 97116-GP; 97161-GP; 97166-GO; 97535-GO; C1768; J0153; J0282; J0690; J1170; J1250; J1265; J1644; J1815; J1885; J1940; J2001; J2150; J2250; J2260; J2270; J2370; J2405; J2704; J2720; J2765; J2930; J3010; J3475; J3480; P9041

== ENCOUNTER → 2018-08-11 | Outpatient (CLI) | payer OTHER | LOC: FLAB 14:36 | PROVIDERS: ATTEND Thoracic Surgery (Cardiothoracic Vascular Surgery) | DX: J90 Pleural effusion, not elsewhere classified (principal); Z95.2 Presence of prosthetic heart valve ==

== ENCOUNTER → 2018-09-05 | Outpatient (CLI) | payer OTHER | LOC: FIMAGING 14:45 | PROVIDERS: ATTEND Thoracic Surgery (Cardiothoracic Vascular Surgery) | DX: J90 Pleural effusion, not elsewhere classified (principal); Z95.2 Presence of prosthetic heart valve; Z95.828 Presence of other vascular implants and grafts; Z98.890 Other specified postprocedural states ==